=== PATIENT | female | born 1955 | race Caucasian/White ===

== ENCOUNTER 2020-12-15 10:59 | Emergency (ER) | payer OTHER, MEDICARE ==
[2020-12-15] MEDS ORDERED: Sodium Chloride 0.9% 10 ML Syringe FLUSH PRN (11:08)
[2020-12-15 11:09] VITALS: BP 154/92; PULSE 100
--- NOTE | 2020-12-15 11:25 | EDM.PDOC ---
ED HPI GENERAL MEDICAL PROBLEM - General Chief Complaint: Chest Pain Stated Complaint: CHEST PAIN Time Seen by Provider: 12/15/20 11:08 Source of Information: Reports: Patient, RN Notes Reviewed History Limitations: Reports: No Limitations - History of Present Illness INITIAL COMMENTS - FREE TEXT/NARRATIVE: Patient is a 65-year-old female who presents to the ER for the evaluation of her chest pain/discomfort. Patient notes that at around 10:30 AM this morning, she got up from her sofa and walked into her kitchen as she was getting ready for work, she was standing at the kitchen sink and she developed a deep gripping sensation in the middle of her chest, she noted that it did not radiate anywhere at that time, did not go down her left arm, radiate up to her jaw. She does state that her body just felt "strange" and she could not quite elaborate what this meant. She did feel nauseous but she did not have any vomiting at this time. She felt slightly dizzy, but did not pass out or lose consciousness. She is not felt pain or discomfort like this before, so it scared her and she immediately came to her providers clinic for management however they rushed her to the ER due to her chest pain. Patient notes she is not having any chest pain at this time, she is not had any fevers or chills, cough or shortness of breath or any sick-like symptoms prior to this chest discomfort. Primary care provider is Kelle Donovan. Patient states that she used to smoke but quit roughly in 2005. She was able to take all of her medications as directed this morning, along with a baby aspirin of 81 mg. - Related Data Allergies Allergy/AdvReac Type Severity Reaction Status Date / Time No Known Allergies Allergy Verified 12/15/20 11:09 Home Meds: Home Meds ALPRAZolam [Xanax] 0.5 mg PO QID PRN 06/23/15 [History] Aspirin 81 mg PO DAILY 12/15/20 [History] Rosuvastatin [Crestor] 20 mg PO DAILY 12/15/20 [History] Venlafaxine [Effexor XR] 175 mg PO DAILY 12/15/20 [History] Past Medical History Cardiovascular History: Reports: Hypertension Gastrointestinal History: Reports: GERD Psychiatric History: Reports: Anxiety Social & Family History - Tobacco Use Tobacco Use Status *Q: Former Tobacco User Used Tobacco, but Quit: Yes Month/Year Tobacco Last Used: 2006 - Recreational Drug Use Recreational Drug Use: No ED ROS GENERAL - Review of Systems Review Of Systems: Comprehensive ROS is negative, except as noted in HPI. ED EXAM, GENERAL - Physical Exam Exam: See Below Exam Limited By: No Limitations General Appearance: Alert, WD/WN, No Apparent Distress Respiratory/Chest: No Respiratory Distress, Lungs Clear, Normal Breath Sounds, No Accessory Muscle Use, Chest Non-Tender Cardiovascular: Normal Peripheral Pulses, Regular Rate, Rhythm, No Edema Peripheral Pulses: 2+: Radial (L), Radial (R) Extremities: Normal Inspection, Normal Capillary Refill Neurological: Alert, Oriented, Normal Cognition, No Motor/Sensory Deficits Psychiatric: Normal Affect, Normal Mood, Anxious (slight generalized) Skin Exam: Warm, Dry, Intact, Normal Color, No Rash #1 Interpretation EKG Date: 12/15/20 Time: 11:03 Rhythm: NSR Rate (Beats/Min): 98 Halfway: Normal P-Wave: Present QRS: Normal ST-T: Normal QT: Prolonged (mildlly; QTC is 463) EKG Interpretation Comments: No obvious ischemia or acute ST changes noted, reviewed by myself and Dr. Morel. Course - Vital Signs Last Recorded V/S: Last Vital Signs Temp 97 F 12/15/20 11:05 Pulse 100 12/15/20 11:05 Resp 17 12/15/20 11:05 BP 154/92 H 12/15/20 11:05 Pulse Ox 98 12/15/20 11:05 - Orders/Labs/Meds Orders: Active Orders 24 hr Category Date Time Status EKG Documentation Completion [RC] STAT Care 12/15/20 11:08 Ordered Peripheral IV Care [RC] . DIRECTED Care 12/15/20 11:08 Ordered Chest 1V Frontal [CR] Stat Exams 12/15/20 11:08 Ordered Sodium Chloride 0.9% [Saline Flush] Med 12/15/20 11:08 Ordered 10 ml FLUSH ASDIRECTED PRN Peripheral IV Insertion Adult [OM.PC] Stat Oth 12/15/20 11:08 Ordered Medication Orders Sodium Chloride (Sodium Chloride 0.9% 10 Ml Syringe) 10 ml FLUSH ASDIRECTED PRN PRN Reason: Keep Vein Open Last Admin: 12/15/20 11:27 Dose: 10 ml Documented by: AMINA Labs: Laboratory Tests 12/15/20 12/15/20 12/15/20 Range/Units 11:11 11:11 11:11 WBC 7.03 (3.98-10.04) K/mm3 RBC 4.95 (3.98-5.22) M/mm3 Hgb 14.4 (11.2-15.7) gm/dl Hct 44.5 (34.1-44.9) % MCV 89.9 (79.4-94.8) fl MCH 29.1 (25.6-32.2) pg MCHC 32.4 (32.2-35.5) g/dl RDW Std Deviation 44.7 (36.4-46.3) fL Plt Count 356 (182-369) K/mm3 MPV 8.9 L (9.4-12.3) fl Neut % (Auto) 55.2 (34.0-71.1) % Lymph % (Auto) 32.9 (19.3-51.7) % Slope % (Auto) 7.0 (4.7-12.5) % Eos % (Auto) 3.4 (0.7-5.8) Baso % (Auto) 1.4 H (0.1-1.2) % Neut # (Auto) 3.88 (1.56-6.13) K/mm3 Lymph # (Auto) 2.31 (1.18-3.74) K/mm3 Slope # (Auto) 0.49 H (0.24-0.36) K/mm3 Eos # (Auto) 0.24 (0.04-0.36) K/mm3 Baso # (Auto) 0.10 H (0.01-0.08) K/mm3 PT 10.1 (9.7-12.0) SECONDS INR 0.94 APTT 23.9 (21.7-31.4) SECONDS Sodium 140 (136-145) mEq/L Potassium 3.9 (3.5-5.1) mEq/L Chloride 104 (98-107) mEq/L Carbon Dioxide 24 (21-32) mEq/L Anion Gap 15.9 H (5-15) BUN 18 (7-18) mg/dL Creatinine 1.5 H (0.55-1.02) mg/dL Est Cr Clr Drug Dosing 34.54 mL/min Estimated GFR (MDRD) 35 (>60) mL/min BUN/Creatinine Ratio 12.0 L (14-18) Glucose 145 H (80-115) mg/dL Calcium 8.4 L (8.5-10.1) mg/dL Magnesium 2.7 H (1.8-2.4) mg/dl Total Bilirubin 0.4 (0.2-1.0) mg/dL AST 19 (15-37) U/L ALT 25 (14-59) U/L Alkaline Phosphatase 56 (46-116) U/L Troponin I < 0.017 (0.00-0.056) ng/mL NT-Pro-B Natriuret Pep (0-125) pg/mL Total Protein 7.1 (6.4-8.2) g/dl Albumin 3.7 (3.4-5.0) g/dl Globulin 3.4 gm/dL Albumin/Globulin Ratio 1.1 (1-2) 12/15/20 Range/Units 11:11 WBC (3.98-10.04) K/mm3 RBC (3.98-5.22) M/mm3 Hgb (11.2-15.7) gm/dl Hct (34.1-44.9) % MCV (79.4-94.8) fl MCH (25.6-32.2) pg MCHC (32.2-35.5) g/dl RDW Std Deviation (36.4-46.3) fL Plt Count (182-369) K/mm3 MPV (9.4-12.3) fl Neut % (Auto) (34.0-71.1) % Lymph % (Auto) (19.3-51.7) % Slope % (Auto) (4.7-12.5) % Eos % (Auto) (0.7-5.8) Baso % (Auto) (0.1-1.2) % Neut # (Auto) (1.56-6.13) K/mm3 Lymph # (Auto) (1.18-3.74) K/mm3 Slope # (Auto) (0.24-0.36) K/mm3 Eos # (Auto) (0.04-0.36) K/mm3 Baso # (Auto) (0.01-0.08) K/mm3 PT (9.7-12.0) SECONDS INR APTT (21.7-31.4) SECONDS Sodium (136-145) mEq/L Potassium (3.5-5.1) mEq/L Chloride (98-107) mEq/L Carbon Dioxide (21-32) mEq/L Anion Gap (5-15) BUN (7-18) mg/dL Creatinine (0.55-1.02) mg/dL Est Cr Clr Drug Dosing mL/min Estimated GFR (MDRD) (>60) mL/min BUN/Creatinine Ratio (14-18) Glucose (80-115) mg/dL Calcium (8.5-10.1) mg/dL Magnesium (1.8-2.4) mg/dl Total Bilirubin (0.2-1.0) mg/dL AST (15-37) U/L ALT (14-59) U/L Alkaline Phosphatase (46-116) U/L Troponin I (0.00-0.056) ng/mL NT-Pro-B Natriuret Pep 58 (0-125) pg/mL Total Protein (6.4-8.2) g/dl Albumin (3.4-5.0) g/dl Globulin gm/dL Albumin/Globulin Ratio (1-2) Meds: Medications Generic Name Dose Route Start Last Admin Trade Name Freq PRN Reason Stop Dose Admin Sodium Chloride 10 ml 12/15/20 11:08 12/15/20 11:27 Sodium Chloride 0.9% 10 Ml Syringe FLUSH 10 ml ASDIRECTED PRN Administration Keep Vein Open - Re-Assessments/Exams Free Text/Narrative Re-Assessment/Exam: 12/15/20 11:27 Patient presents to the ER for chest discomfort, will go ahead and get some labs, EKG was done at time of triage and shows no sign of obvious ischemic changes reviewed by myself and Dr. Morel. 12/15/20 12:25 Labs have resulted, CBC essentially unremarkable, coags acceptable for today's purposes, troponin undetectably low, metabolic panel shows a slight dehydration with slightly elevated anion gap, creatinine is elevated at 1.5, GFR 35. We will go ahead and discharge the patient home, have her follow-up with her regular care provider as needed for ongoing management. Departure - Departure Time of Disposition: 12:26 Disposition: Home, Self-Care 01 Condition: Good Clinical Impression: Chest pain in adult Instructions: Nonspecific Chest Pain, Adult, [id number] Referrals: Kelle Donovan NP [Primary Care Provider] - Forms: ED Department Discharge, ED Return to Work/School Form Additional Instructions: You were evaluated in the ER today for your chest pain. Laboratory evaluation, EKG, chest x-ray all are unremarkable for any sign of myocardial infarction or heart attack at today's visit. The pain you were experiencing, could be musculoskeletal in etiology, recommend you go home rest for the rest of the day, take some Tylenol ibuprofen increase your oral fluid hydration eat a few good meals and see if this helps relieve some of the discomfort. If your symptoms seem to change or worsen, do not hesitate to return to the ER, otherwise recommend you follow-up with your regular care provider, sometime early next week for reevaluation and to make sure all your symptoms are getting better as expected. Sepsis Event Note (ED) - Evaluation Sepsis Screening Result: No Definite Risk - Focused Exam Vital Signs: Vital Signs Temp Pulse Resp BP Pulse Ox 12/15/20 11:05 97 F 100 17 154/92 H 98 - My Orders Last 24 Hours: My Active Orders 12/15/20 11:08 EKG Documentation Completion [RC] STAT Peripheral IV Care [RC] . DIRECTED Chest 1V Frontal [CR] Stat Sodium Chloride 0.9% [Saline Flush] 10 ml FLUSH ASDIRECTED PRN Peripheral IV Insertion Adult [OM.PC] Stat - Assessment/Plan Last 24 Hours: My Active Orders 12/15/20 11:08 EKG Documentation Completion [RC] STAT Peripheral IV Care [RC] . DIRECTED Chest 1V Frontal [CR] Stat Sodium Chloride 0.9% [Saline Flush] 10 ml FLUSH ASDIRECTED PRN Peripheral IV Insertion Adult [OM.PC] Stat
--- NOTE | 2020-12-15 13:07 | CR ---
Chest: Portable view of the chest was obtained. Comparison: No prior chest imaging is available. Heart size and mediastinum are within normal limits for portable technique. Lungs are clear with no acute parenchymal change. No acute osseous abnormality is appreciated. Impression: 1. Nothing acute is appreciated on portable chest x-ray. Diagnostic code #1
== END 2020-12-15 12:46 | disposition home or self-care (01) ==
LOC: JD.ED 10:59
DX: R07.89 Other chest pain (principal); I10 Essential (primary) hypertension; Z79.82 Long term (current) use of aspirin; Z87.891 Personal history of nicotine dependence
CPT/HCPCS: 36415; 71045; 71045-26; 80053; 83735; 83880; 84484; 85025; 85610; 85730; 93005; 93010; 99284; 99285-25